=== PATIENT | female | born 1970 | race Caucasian/White ===

== ENCOUNTER 2022-03-19 12:13 | Outpatient (CLI) | payer BC, SELFPAY ==
--- NOTE | ~2022-03-19 | XR_ITS ---
EXAMINATION: XR knee RT 3V DATE: 03/19/2022 12:36 INDICATION: Right knee pain. TECHNIQUE: 3 views of right knee were obtained. COMPARISON: None. FINDINGS: Bone alignment is normal. No fracture. There is mild tricompartmental osteoarthritis charac terized by tiny osteophytes. No joint space narrowing. No lateral view was performed. IMPRESSION: 1. Mild right knee osteoarthritis. Reviewed, dictated and finalized at location [facility].
== END 2022-03-19 12:14 | disposition home or self-care (01) ==
PROVIDERS: PCP Family Medicine; Visit Provider Physician Assistant
DX: M25.561 Pain in right knee (principal); M17.11 Unilateral primary osteoarthritis, right knee
CPT/HCPCS: 73562

== ENCOUNTER 2023-03-02 09:47 | Outpatient (CLI) | payer BC, SELFPAY ==
--- NOTE | ~2023-03-02 | US_ITS ---
Thyroid ultrasound. Clinical History: Nontoxic thyroid nodule Findings: Real-time sonography of the thyroid gland was performed. The right lobe measures 3.9 x 1.1 x 1.1 cm. The left lobe measures 1.8 x 0.5 x 0.7 cm. The isthmus is 1 mm in AP diameter. No discrete thyroid nodule identified. Impression: No discrete thyroid nodule identified. Reviewed, dictated and finalized at [facility]. Impression: No discrete thyroid nodule identified.
== END 2023-03-02 09:48 | disposition home or self-care (01) ==
PROVIDERS: PCP Family Medicine; Visit Provider Physician Assistant Medical
DX: E04.1 Nontoxic single thyroid nodule (principal)
CPT/HCPCS: 76536